=== PATIENT | male | born 1960 | race Caucasian/White ===

== ENCOUNTER 2020-08-28 01:39 | Day surgery (SDC) | payer OTHER, SELFPAY ==
[2020-08-14 12:43] VITALS: BMI 32.1
[2020-08-28 06:10] VITALS: BP 144/87; PULSE 67; RESP 18; TEMP 36.4; O2SAT 99; BMI 32.5
[2020-08-28] MEDS: LACTATED RINGERS 1,000 ML 150 ML IV CONT (06:33)
--- NOTE | 2020-08-28 07:10 | WPDANESEPPF ---
Anes - Initial Pre Proc Eval Procedure: Operation Date: 08/28/20 07:30 Proposed Procedures p Screening Colonoscopy - Carmelo Gautam MD Date/Time: 08/28/20 07:10 Surgeon: Carmelo Gautam MD Pre Op Diagnosis: Neoplasm Screening Patient Data Age: 60 Gender: M Height: 5 ft 7 in Weight: 94.1 kg Last Vital Signs Temp 97.5 F L 08/28/20 06:10 Pulse 67 08/28/20 06:10 Resp 18 08/28/20 06:10 BP 144/87 H 08/28/20 06:10 Pulse Ox 99 08/28/20 06:10 Allergies Allergy/AdvReac Type Severity Reaction Status Date / Time No Known Allergies Allergy Mild Verified 04/11/20 16:43 Home Medications Medication Instructions Recorded Confirmed Type atorvastatin 10 mg tablet 10 mg PO DAILY 10/17/19 08/14/20 History canagliflozin 100 mg tablet 100 mg PO DAILY 10/17/19 08/14/20 History metformin 500 mg tablet 500 mg PO DAILY 10/17/19 08/14/20 History quinapril 20 1 tablet PO DAILY 10/17/19 08/14/20 History mg-hydrochlorothiazide 12.5 mg tablet sildenafil 100 mg tablet 100 mg PO DAILY PRN #8 tablet 02/29/20 08/14/20 Rx sodium,potassium,mag sulfates 17.5 See Rx Instructions PO .COMPLEX 07/31/20 Rx gram-3.13 gram-1.6 gram oral soln #354 ml Patient hx anesthesia problems: none Family hx anesthesia problems: none PMFSH Past Medical History Medical History (Updated 08/28/20 @ 07:10 by Fam Monroy MD) BMI 30.0-30.9,adult Diabetes Hyperlipidemia Surgical History Surgical History H/O hernia repair Family History Family History Mother Diabetes mellitus Hypertension Family history of elevated blood lipids Sibling Hypertension Grandparent Acute myocardial infarction Cerebrovascular accident Family history of coronary artery disease Father Cerebrovascular accident Malignant neoplasm of prostate Other Family history of cardiovascular disease Social History Social History Smoking status: Never smoker Second hand tobacco smoke exposure: No Alcohol intake: current Alcohol use details: SOCIAL Substance use: unknown Substance use type: unknown Living arrangements: with family Spiritual care concerns: No Anes - Eval Final PreProcedure Day of Procedure 08/28/20 07:10 Patient weight: overweight and obese Heart: regular rate and rhythm Lungs: clear to auscultation Airway: Mallampati scale Last oral intake: >/= 8 hours ASA classification: III Emergent: no Anesthetic plan: proceed Anesthesia type and monitoring: general GIVS and standard monitoring Informed Consent: The patient's anesthetic plan and its attendant risks and benefits were discussed with the patient/family/POA. Questions were solicited and answers provided to the satisfaction of the patient/family/POA.
--- NOTE | 2020-08-28 07:12 | PM.HPGS ---
History of Present Illness History of Present Illness Consent: Risks, benefits, and alternatives have been discussed and questions answered. Patient agrees to proceed with procedure. Chief complaint: Neoplasm Screening Narrative: Benedicto Colmenares Jr. is a 60 year old male For for colon cancer screening Review of Systems Review of Systems: All systems reviewed & are unremarkable except as noted in HPI and below PMFSH Past Medical History Medical History BMI 30.0-30.9,adult Diabetes Hyperlipidemia Surgical History Surgical History H/O hernia repair Family History Family History Mother Diabetes mellitus Hypertension Family history of elevated blood lipids Sibling Hypertension Grandparent Acute myocardial infarction Cerebrovascular accident Family history of coronary artery disease Father Cerebrovascular accident Malignant neoplasm of prostate Other Family history of cardiovascular disease Social History Social History Smoking status: Never smoker Second hand tobacco smoke exposure: No Alcohol intake: current Alcohol use details: SOCIAL Substance use: unknown Substance use type: unknown Living arrangements: with family Spiritual care concerns: No Meds Home Medications and Allergies Home Medications Medication Instructions Recorded Confirmed Type atorvastatin 10 mg tablet 10 mg PO DAILY 10/17/19 08/14/20 History canagliflozin 100 mg tablet 100 mg PO DAILY 10/17/19 08/14/20 History metformin 500 mg tablet 500 mg PO DAILY 10/17/19 08/14/20 History quinapril 20 1 tablet PO DAILY 10/17/19 08/14/20 History mg-hydrochlorothiazide 12.5 mg tablet sildenafil 100 mg tablet 100 mg PO DAILY PRN #8 tablet 02/29/20 08/14/20 Rx sodium,potassium,mag sulfates 17.5 See Rx Instructions PO .COMPLEX 07/31/20 Rx gram-3.13 gram-1.6 gram oral soln #354 ml Allergies Allergy/AdvReac Type Severity Reaction Status Date / Time No Known Allergies Allergy Mild Verified 04/11/20 16:43 Vital Signs Vital Signs - 24 hr 08/28/20 06:10 Temperature 36.4 C L Pulse Rate 67 Respiratory Rate 18 Blood Pressure 144/87 H Pulse Oximetry 99 Exam Resp: Auscultation: clear to auscultation bilaterally Cardio: Rate: regular rate Rhythm: regular rhythm GI: GI Palp: Yes Soft to palpation and No Tenderness to palpation present (GI) Assessment and Plan Assessment and plan (1) Colon cancer screening: Code(s): Z12.11 - Encounter for screening for malignant neoplasm of colon Status: Acute Assessment and Plan: Colonoscopy with possible biopsy or polypectomy or cautery or injection of substances.
[2020-08-28 07:13] LABS: Glucose Point of Care 101 (65-105)
[2020-08-28] MEDS: SIMETHICONE ORAL SUSPENSION 20 MG/0.3 ML 30 ML BOTTLE 0.6 ML IRRIGATION (07:40)
[2020-08-28 07:47] VITALS: BP 126/76; PULSE 77; RESP 16; O2SAT 99
[2020-08-28 07:57] VITALS: BP 136/75; PULSE 68; RESP 16; O2SAT 98
[2020-08-28 08:07] VITALS: BP 129/77; PULSE 65; RESP 11; O2SAT 98
== END 2020-08-28 08:25 | disposition home or self-care (01) ==
PROVIDERS: PCP Physician Assistant; Visit Provider Internal Medicine Gastroenterology
PROC: 0DJD8ZZ Inspection of Lower Intestinal Tract, Via Natural or Artificial Opening Endoscopic (ICD-10-PCS; CPT 45378; principal; 2020-08-28 07:30)
DX: Z12.11 Encounter for screening for malignant neoplasm of colon (principal); K57.30 Diverticulosis of large intestine without perforation or abscess without bleeding; E11.9 Type 2 diabetes mellitus without complications; E78.5 Hyperlipidemia, unspecified; Z79.84 Long term (current) use of oral hypoglycemic drugs; E66.9 Obesity, unspecified; Z68.32 Body mass index [BMI] 32.0-32.9, adult
CPT/HCPCS: 45378; 82948; J2704; J7120

== ENCOUNTER 2020-09-11 07:29 | Outpatient (CLI) | payer OTHER, SELFPAY ==
--- NOTE | ~2020-09-11 | US_ITS ---
EXAMINATION: US aorta [facility] scr[facility] DATE: 09/11/2020 08:09 INDICATION: Abdominal aortic aneurysm screening with risk factors of hypertension, diabetes and hyper cholesterolemia. TECHNIQUE: Grayscale, color Doppler, and pulsed Doppler images of the aorta and common iliac arteries were obtained. COMPARISON: None. FINDINGS: The proximal aorta measures 3.3 cm. The mid aorta measures 2.9 cm. The distal aorta measures 2.4 cm. The right common iliac artery measures 1.7 cm. The left common iliac artery measures 1.5 cm. IMPRESSION: 1. Normal caliber abdominal aorta. Reviewed, dictated and finalized at location D.
== END 2020-09-11 07:30 | disposition home or self-care (01) ==
PROVIDERS: PCP Physician Assistant; Visit Provider Physician Assistant
DX: Z82.49 Family history of ischemic heart disease and other diseases of the circulatory system (principal)
CPT/HCPCS: 76706

== ENCOUNTER 2020-11-07 08:35 | Outpatient (CLI) | payer OTHER, SELFPAY ==
--- NOTE | 2020-11-07 08:40 | ECHO_ITS ---
Patient Info Name: Benedicto Colmenares Age: 60 years : 1960 Gender: Male Ht: 67 in Wt: 205 lbs BSA: 2.13 m2 HR: 72 bpm BP: 139 / 84 mmHg Heart Rhythm: Sinus Rhythm Technical Quality: Good Exam Date: 11/07/2020 9:08 AM Exam Location: [facility] Pulmonary Patient Status: Outpatient Admit Date: 11/07/2020 Staff Ordering Physician: Michele Riddle PA-C [employer] Specialist: Kanika Yoder RDCS Attending Provider: Michele Riddle PA-C Referring Physician: Janessa PEDRO; Exam Type: CA echo doppler color flow Study Info Indications - chesdt pain Complete two-dimensional, color flow and Doppler transthoracic echocardiogram is performed. Summary 1. Complete two-dimensional, color flow and Doppler transthoracic echocardiogram is performed. 2. Left ventricular chamber dimension is normal. 3. Left ventricular systolic function is normal, estimated at 65-70%. 4. There is moderately increased left ventricular wall thickness. 5. The left ventricular diastolic function is grade I diastolic dysfunction. 6. Left atrial chamber dimension is mildly enlarged. 7. There is mild mitral valve regurgitation. 8. The mitral valve has thickened leaflets. 9. There is mild tricuspid valve regurgitation. 10. Mild pulmonary hypertension, estimated pulmonary arterial systolic pressure is 39 mmHg. Left Ventricle Left ventricular chamber dimension is normal. Left ventricular systolic function is normal, estimated at 65-70%. There is moderately increased left ventricular wall thickness. The left ventricular diastolic function is grade I diastolic dysfunction. Right Ventricle Right ventricular chamber dimension is normal. Right ventricular systolic function is normal. Left Atria Left atrial chamber dimension is mildly enlarged. Right Atria Right atrial chamber dimension is normal. Atrial Septum Intact interatrial septum visualized by color flow imaging. Aortic Valve The aortic valve is trileaflet. There is no aortic valve sclerosis. There is no aortic valve stenosis. There is trace aortic valve regurgitation. Pulmonic Valve The pulmonic valve is normal. There is no pulmonic valve stenosis. There is trace pulmonic regurgitation. Mitral Valve The mitral valve has thickened leaflets. There is no mitral valve stenosis. There is mild mitral valve regurgitation. Tricuspid Valve The tricuspid valve leaflets are normal. There is no significant tricuspid valve stenosis. There is mild tricuspid valve regurgitation. Mild pulmonary hypertension, estimated pulmonary arterial systolic pressure is 39 mmHg. Pericardium/Pleural The pericardium appears normal. There is no pericardial effusion. Inferior Vena Cava Normal inferior vena cava with >50% collapse upon inspiration consistent with normal right atrial pressure, 10 mmHg. Aorta The aortic root size at the sinus of Valsalva is mildly dilated. Left Ventricular Outflow Tract Name Value Normal LVOT 2D LVOT Diameter 2.1 cm LVOT Doppler LVOT Peak Gradient 10 mmHg LVOT Mean Gradient 6 mmHg
== END 2020-11-07 08:36 | disposition home or self-care (01) ==
PROVIDERS: PCP Physician Assistant; Visit Provider Physician Assistant
DX: R07.9 Chest pain, unspecified (principal); I27.20 Pulmonary hypertension, unspecified
CPT/HCPCS: 93306

== ENCOUNTER 2020-12-20 14:31 | Outpatient (CLI) | payer OTHER, SELFPAY ==
--- NOTE | ~2020-12-20 | CT_ITS ---
EXAMINATION: CT chest abdomen pelvis w con DATE: 12/20/2020 14:59 INDICATION: Hypercalcemia. TECHNIQUE: Computed tomography (CT) of the chest, abdomen, and pelvis was performed with 100 mL Omnip aque 350 intravenous contrast. Automated exposure control and iterative reconstruction technique were employed. The dose-length product was 790.96 mGy-cm. COMPARISON: None FINDINGS: CHEST CT: There are innumerable nodules in both lungs in a perilymphatic distribution. The nodules measure up t o 4 mm. No pleural effusion. There is mediastinal and bilateral hilar lymphadenopathy. For example, a right paratracheal node measures 2.7 x 1.5 cm. The heart size is normal. No pericardial effusion. Th ere is moderate thoracic spondylosis. ABDOMEN/PELVIS CT: The liver and spleen are normal. There are gallstones in the gallbladder, which is normal in size. Th e pancreas and adrenal glands are normal. There is cortical thinning of the kidneys. There are change s of right inguinal hernia repair. The prostate is moderately enlarged. There is diverticulosis of th e colon without evidence of diverticulitis. The appendix is normal. There are no dilated loops of bow el. There is periportal and gastrohepatic lymphadenopathy. For example, a periportal node measures 5. 8 x 2.0 cm. There is no free intraperitoneal fluid. There is mild lumbar spondylosis. IMPRESSION: 1. Pulmonary nodules and chest and abdominal lymphadenopathy, most likely sarcoid. Reviewed, dictated and finalized at location A. IMPRESSION: 1. Pulmonary nodules and chest and abdominal lymphadenopathy, most likely sarco id.
[2020-12-20 14:53] LABS: Estimated Glomerular Filt Rate 33
== END 2020-12-20 14:32 | disposition home or self-care (01) ==
PROVIDERS: PCP Physician Assistant; Visit Provider Physician Assistant
DX: E83.52 Hypercalcemia (principal); R91.8 Other nonspecific abnormal finding of lung field; K80.80 Other cholelithiasis without obstruction; K57.30 Diverticulosis of large intestine without perforation or abscess without bleeding; R59.0 Localized enlarged lymph nodes
CPT/HCPCS: 71260; 74177; Q9967

== ENCOUNTER 2020-12-26 13:56 | Outpatient (CLI) | payer OTHER, SELFPAY ==
--- NOTE | ~2020-12-26 | US_ITS ---
EXAMINATION: US renal BI DATE: 12/26/2020 15:03 INDICATION: Acute renal failure TECHNIQUE: Multiple grayscale and Doppler ultrasound images of the kidneys were obtained. COMPARISON: None. FINDINGS: The right kidney measures 11.1 x 6.6 x 4.9 cm. The left kidney measures 11.6 x 7.2 x 5.1 cm . The kidneys demonstrate normal parenchymal echogenicity. There is no hydronephrosis. The bladder de monstrates wall thickness measuring up to 5 mm but is incompletely distended. IMPRESSION: 1. Normal kidneys without hydronephrosis. 2. Mild bladder wall thickening which could be due to incomplete distention. Reviewed, dictated and finalized at location B.
== END 2020-12-26 13:57 | disposition home or self-care (01) ==
PROVIDERS: PCP Physician Assistant; Visit Provider Physician Assistant
DX: N17.9 Acute kidney failure, unspecified (principal); R93.41 Abnormal radiologic findings on diagnostic imaging of renal pelvis, ureter, or bladder
CPT/HCPCS: 76775

== ENCOUNTER 2021-07-18 07:57 | Outpatient (RCR) | payer OTHER, SELFPAY ==
[2021-07-18 08:04] VITALS: BMI 33.1
[2021-07-18 08:07] VITALS: BMI 33.1
== END 2021-10-14 12:26 | disposition home or self-care (01) ==
LOC: ANHDMC 07:57
PROVIDERS: PCP Physician Assistant; Visit Provider Nurse Practitioner Family
DX: E11.9 Type 2 diabetes mellitus without complications (principal); Z71.3 Dietary counseling and surveillance
CPT/HCPCS: 97802; 99199

== ENCOUNTER → 2021-08-28 06:52 | Outpatient (CLI) | payer OTHER, SELFPAY ==
--- NOTE | ~2021-08-28 | XR_ITS ---
XR knee LT 3V DATE: 08/28/2021 07:39 INDICATION: Left knee pain TECHNIQUE: [place], AP and lateral views COMPARISON: 04/09/2015 left knee FINDINGS: There is tricompartment osteoarthritis, most prominent at the medial compartment with promi nent loss of joint space there is periarticular spurring at all 3 compartments. No fracture or dislocation, periosteal reaction or bone destruction, radiopaque intra-articular loose body or chondrocalcinosis. No joint effusion is evident. 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
== END ==
PROVIDERS: PCP Physician Assistant; Visit Provider Physician Assistant
DX: M25.562 Pain in left knee (principal); M17.12 Unilateral primary osteoarthritis, left knee
CPT/HCPCS: 73562

== ENCOUNTER 2022-01-06 16:03 | Outpatient (CLI) | payer OTHER, SELFPAY ==
--- NOTE | ~2022-01-06 | US_ITS ---
EXAMINATION: US scrotum doppler DATE: 01/06/2022 17:29 INDICATION: Right scrotal mass TECHNIQUE: Testicular sonogram utilizing grayscale and Doppler COMPARISON: None. FINDINGS: The left testis measures 3.3 x 1.5 x 2.2 cm. The right testis measures 4.0 x 1.8 x 2.3 cm. There is a well-defined 1.1 x 1.0 x 1.0 cm hypoechoic lesion situated deep to the tunica between the head of th e epididymis and the cephalad margin of the right testis. There appears be a small amount of more hyp erechoic fat from an acute angle between the peripheral margins of the testis and the hypoechoic lesi on suggesting an extratesticular origin. No definitive internal vascularity on color Doppler which wo uld be consistent with a complex cystic lesion most likely an epididymal cyst. Otherwise symmetric no rmal grayscale appearance to both testes. There is normal vascular flow to both testes. The right epi didymis is otherwise normal with normal vascular flow. 3 mm anechoic epididymal cyst at the head of t he otherwise normal left epididymis. Normal vascular flow in the left epididymis. There is no varicoc jillian or hydrocele. IMPRESSION: 1. 11 mm hypoechoic lesion situated between the right epididymal head and the cephalad pole of the r ight testis without discernible internal vascular flow on color Doppler which appears more likely ext ratesticular and would favor a complex epididymal cyst over solid neoplasm. Reviewed, dictated and finalized at location B. IMPRESSION: 1. 11 mm hypoechoic lesion situated between the right epididymal head and the cephalad pole of the right testis without discernible internal vascular flow on color Doppler which appears more likely extratesticular and would favor a comp ilan epididymal cyst over solid neoplasm.
== END 2022-01-06 16:04 | disposition home or self-care (01) ==
PROVIDERS: PCP Physician Assistant; Visit Provider Physician Assistant
DX: N50.89 Other specified disorders of the male genital organs (principal)
CPT/HCPCS: 76870; 93976

== ENCOUNTER 2022-05-14 09:15 | Outpatient (RCR) | payer OTHER, SELFPAY ==
[2022-02-19 13:49] VITALS: BMI 33.1
== END 2022-05-19 09:49 | disposition home or self-care (01) ==
LOC: ANHDMC 09:15
PROVIDERS: PCP Physician Assistant; Visit Provider Internal Medicine Endocrinology, Diabetes & Metabolism
DX: E11.9 Type 2 diabetes mellitus without complications (principal); Z71.3 Dietary counseling and surveillance; Z71.89 Other specified counseling
CPT/HCPCS: 97803; 99199; G0108

== ENCOUNTER 2022-09-08 07:30 | Outpatient (CLI) | payer OTHER, SELFPAY ==
--- NOTE | ~2022-09-08 | US_ITS ---
EXAMINATION: US soft tissue head and neck DATE: 09/08/2022 08:09 INDICATION: Other specified soft tissue disorder. Right clavicle bulge. TECHNIQUE: Multiple grayscale and Doppler ultrasound images of the neck were obtained. COMPARISON: Chest CT 12/20/2020, right shoulder radiographs 09/08/2022 FINDINGS: There is no abnormal mass or lymphadenopathy in the patient's area of concern. IMPRESSION: 1. No abnormal mass or lymphadenopathy in the patient's area of concern. Reviewed, dictated and finalized at location A.
--- NOTE | ~2022-09-08 | XR_ITS ---
Right Shoulder Technique: AP and scapular Y views were obtained. Clinical History: Pain Findings: No fracture or dislocation is seen. Osseous alignment is anatomic. Uqic-os-mxzuekjk AC join t degenerative change present. Glenohumeral joint is intact. Soft tissues are unremarkable. Impression: Glpt-ex-gwwicwkz AC joint degenerative change. Reviewed, dictated and finalized at location . Impression: Fvbm-bk-siclqirq AC joint degenerative change.
== END 2022-09-08 07:31 | disposition home or self-care (01) ==
PROVIDERS: PCP Physician Assistant; Visit Provider Physician Assistant
DX: M25.511 Pain in right shoulder (principal); M79.89 Other specified soft tissue disorders; R93.6 Abnormal findings on diagnostic imaging of limbs
CPT/HCPCS: 73030; 76536

== ENCOUNTER 2024-07-07 09:30 | Outpatient (RCR) | payer OTHER, SELFPAY ==
[2024-05-09 08:26] VITALS: BMI 38.3
[2024-07-07 09:35] VITALS: BMI 31.4
[2024-07-07 09:40] VITALS: BMI 31.4
== END 2024-07-25 09:48 | disposition home or self-care (01) ==
LOC: ANHDMC 09:30
PROVIDERS: PCP Physician Assistant; Visit Provider Nurse Practitioner Family
DX: E11.29 Type 2 diabetes mellitus with other diabetic kidney complication (principal); R80.9 Proteinuria, unspecified; Z71.3 Dietary counseling and surveillance; Z71.89 Other specified counseling
CPT/HCPCS: 97802; 97803; G0108

== ENCOUNTER 2024-12-01 09:04 | Outpatient (CLI) | payer OTHER, SELFPAY ==
--- NOTE | ~2024-12-01 | US_ITS ---
Renal-Bladder ultrasound Clinical History: Diabetes Technique: Real-time sonographic imaging of the kidneys and urinary bladder was performed. Findings: The right kidney measures 11.8 cm in length and the left kidney measures 10.8 cm. There is no hydronephrosis or renal calculus identified. Renal cortical echogenicity is within normal limits. No renal mass lesion is identified. The urinary bladder is moderately distended at the time of this exam. No intraluminal echoes are iden tified. No abnormal wall thickening is seen. Prostate gland is enlarged. Impression: Unremarkable ultrasound of the kidneys and urinary bladder. Enlarged prostate gland. Reviewed, dictated and finalized at location . Impression: Unremarkable ultrasound of the kidneys and urinary bladder. Enlarged prostate gland.
--- OUTSIDE RECORDS SUMMARY | 2024-12-01 09:41 | XMS_ITS | Clinical Summary ---
Author Organization [facility] Address [address] [place] [id number] Care Team Providers Care [facility] Name Role Phone Michele Riddle Primary Care Provider Sathish Barker MD, Ziyad Unavailable + [phone] Millicent Finch MD Unavailable [phone] Dougie Honeycutt MD Unavailable [phone] Allergies No known active allergies Medications atorvastatin (LIPITOR) 10 mg tablet Take 10 mg by mouth daily Active amLODIPine (NORVASC) 10 mg tablet Take 1 tablet (10 mg total) by mouth daily 30 tablet 11 1 Active tamsulosin (FLOMAX) 0.4 mg extended release capsule Take 1 capsule (0.4 mg total) by mouth daily with dinner 30 capsule 1 Active Additional Information Patient not taking.Reported on 01/29/2021 LORazepam (ATIVAN) 0.5 mg tabletIndicatio ns:anxiety,Inso mnia Take 1 tablet (0.5 mg total) by mouth every 6 (six) hours as needed for anxiety 12 tablet 1 Active traZODone (DESYREL) 50 mg tablet Take 1 tablet (50 mg total) by mouth nightly as needed for sleep 30 tablet 1 Active sulfamethoxazol e-trimethoprim (BACTRIM DS) 800-160 mg per tablet Take 1 tablet by mouth 3 (three) times a week 30 tablet 1 1 Active predniSONE (DELTASONE) 10 mg tablet Take 0.5 tablets (5 mg) by mouth daily 45 tablet 2 Active Active Problems Problem Noted Date Diagnosed Date Sarcoidosis of lung 01/15/2021 Steroid-induced hyperglycemia 01/15/2021 Essential hypertension 01/15/2021 Controlled type 2 diabetes m juanpablo without complication, without long-term current use of insulin 01/15/2021 Acute kidney failure 01/10/2021 Hypercalcemia 12/25/2020 Immunizations Immunization Administration Dates Next Due Pfizer SARS-CoV-2 Monovalent Vaccination (12+ Yrs) PURPLE 11/20/2020,10/30/2020 Surgical History Surgery Date Site/Laterality Comments COLONOSCOPY CT CHEST TUBE INSERTION LEFT 01/11/2021 N/A Medical History Medical History Date Comments Diabetes mellitus (HCC) Social History Tobacco Use Types Packs/Day Years Used Date Smoking Tobacco: Never AUDIT-C Answer Date Recorded Q1: How often do you have a drink containing alc ohol? 2-4 times a month 01/08/2021 Q2: How many drinks containi ng alcohol do you have on a typical day when you are drinking? 3 or 4 01/08/2021 Frequency of Binge Drinking Not on file 12/27 Personal Safety Answer Date Recorded Getting School Help Needed Not on file 08/29 Sex and Gender Information Value Date Recorded Sex Assigned at Not on file Legal Sex Male 9:44 AM CDT Gender Identity Not on file Sexual Orientation Not on file Obstetrics History Last Filed Vital Signs Vital Sign Reading Time Taken Comments Blood Pressure 142/78 02/20/2021 3:29 PM CDT Pulse 92 02/20/2021 3:29 PM CDT Temperature 36.7 C (98.1 F) 02/20/2021 3:29 PM CDT Respiratory Rate 18 02/20/2021 3:29 PM CDT Oxygen Saturation 98% 02/20/2021 3:29 PM CDT Inhaled Oxygen Concentration - - Weight 86.5 kg (190 lb 12.8 oz) 021 11:27 AM CDT Height 172.7 cm (5' 8) 01/29/2021 11:2 7 AM CDT Body Mass Index 29.01 01/29/2021 11:27 AM CDT Plan of Treatment Health Maintenance Due Date Last Done Comments Albumin Creatinine Ratio, Urine 1960 Colon Cancer Screening-Colonoscopy 1960 Depression Screening 1960 Hepatitis C Screening 1960 Prostate Cancer Screening-PSA 1960 Dilated Eye Exam 1960 Foot Exam 1960 Lipid Panel 1960 DTaP/Tdap/Td Vaccine (1 - Tdap) 1973 Hepatitis B Screening 1980 Regular Well Visit/Exam 18-64 1980 Pneumococcal vaccine <65 (1 of 2 - PCV) 1981 Zoster Vaccine (1 of 2) 2012 Hemoglobin A1C 07/17/2021 01/14/2021 eGFR 01/25/2022 01/25/2021, 12/28, 01/15/2021, Additional history exists Covid-19 Vaccine (3 - 2023-2 5 season) 2024 11/20/2020, 10/30/2020 Influenza Vaccine (Season Ended) 2025 Procedures Procedure Name Priority Date/Time Associated Diagnosis Comments EGFR Routine 01/25/2021 7:24 AM CDT Sarcoidosis of lung Acute renal failure with other specified pathological lesion in kidney HEMOGLOBIN A1C Routine 01/14/2021 2:07 PM CDT from Last 3 Months or Most Recently Relevant to Health Maintenance Results * eGFR (01/25/2021 7:24 AM CDT) eGFR 43 mL/min/1.7 3 m2 ALEXIS OBANDO Comment: Interpretive Data Reference Interval Normal >/= 90 mL/min/1.73m2 Mildly decreased* 60 - 89 mL/min/1.73m2 Mildly to moderately decreased 45 - 59 mL/min/1.73m2 Moderately to severely decreased 30 - 44 mL/min/1.73m2 Severely decreased 15 - 29 mL/min/1.73m2 Kidney Failure < 15 mL/min/1.73m2 *Relative to young adult level Estimated glomerular filtration rate is determined by the CKD-EPI equation recommended by the National Kidney Foundation (KDIGO 2012 Clinical Practice Guideline for the Evaluation and Management of Chronic Kidney Disease. Kidney Intnl Suppl Jun 2012;3:1). The CKD-EPI equation should not be used for patients with unstable renal function and has not been validated in children and those over 70. Current interpretive data was last reviewed 2020 Testing performed by: [address] [address] Blood specimen (specimen) 01/25/2021 7:24 AM CDT 01/25/2021 7:27 AM CDT us Millicent Finch MD LAB BLOOD ORDERABLES F inal Result Performing Organization Address [facility] Co de Phone Number [facility] [address] [facility] [place] [address] * (ABNORMAL) Hemoglobin A1c (01/14/2021 2:07 PM CDT) Hgb A1C 6.6(H) 4.0 - 5.6 % ALEXIS Comment:Testing performed by : [address] [address] Estimated Average Glucose 143 mg/dL ALEXIS Comment: The ADA recommends reporting an estimated Average Glucose (eAG) with all Hemoglobin A1c results using the equation derived from a study of 507 normal and diabetic adults. Minority populations were underrepresented and children were not included. (Diabetes Care 31:0542-0909, 2008). The eAG is not equivalent to a fasting glucose. Testing performed by: [address] [address] Blood specimen (specimen) 01/14/2021 2:07 PM CDT 01/14/2021 2:51 PM CDT us Jose Henderson MD LAB BLOOD ORDERABLES Final R esult Performing Organization Address City/[facility]/ZIP Co de Phone Number [facility] [address] [facility] [address] [place], [place] [id number] from Last 3 Months or Most Recently Relevant to Health Maintenance Insurance [facility] H[facility] Advance Directives For more information, please contact: [phone] * Full Code (Latest Code Status on File) Date Activated Date Inactivated Comments 01/09/2021 3:16 PM 01/15/2021 6:56 PM Care Teams [facility] Relationship Specialty Start Date End Date Michele Riddle PA [address] [address] PCP - General Physician Hand Lens Polisher 11/07/20 Ziyad Bower Jr., MD [address] [address] Medical Oncologist/Medium Cycle Salesperson Medical Oncology 01/03/21 Millicent Finch MD [address] [address] Consulting Physician Pulmonary Disease 01/15/21 Dougie Honeycutt MD [address] [address] Consulting Physician Nephrology 01/15/21
--- OUTSIDE RECORDS SUMMARY | 2024-12-01 09:41 | XMS_ITS | Referral Summary ---
Author Organization [facility] Address [facility] [place] [address] Care Team Providers Care Field Property Loss Specialist Name Role Phone Michele Riddle Primary Care Provider Sathish Barker MD, Ziyad Unavailable + [phone] Millicent Finch MD Unavailable +[phone] Dougie Honeycutt MD Unavailable [phone] Allergies No known active allergies Medications [...] Essential hypertension 01/15/2021 Controlled type 2 diabetes ching geronimo without complication, without long-term current use of insulin 01/15/2021 Acute kidney failure 01/10/2021 Hypercalcemia 12/25/2020 Immunizations Immunization Administration Dates Next Due Pfizer SARS-CoV-2 Monovalent Vaccination (12+ Yrs) PURPLE 11/20/2020,10/30/2020 Social History Tobacco Use Types Packs/Day Years [...] on file Sexual Orientation Not on file Last Filed Vital Signs Vital Sign Reading [...] 01/29/2021 11:27 AM CDT Plan of Treatment Not on file Procedures Procedure Name Priority Date/Time Associated Diagnosis [...] was last reviewed 2020 Testing performed by: [facility], [address] [place] [address]., [address] Blood specimen (specimen) 01/25/2021 7:24 AM CDT 01/25/2021 7:27 AM CDT Millicent Finch MD LAB BLOOD ORDERABLES F inal Result ALEXIS [address] [facility] [place] [address] * (ABNORMAL) Hemoglobin A1c (01/14/2021 2:07 PM CDT) Hgb A1C 6.6(H) 4.0 - 5.6 % ALEXIS OBANDO Comment:Testing performed by : [address] [address] Estimated Average Glucose 143 mg/dL ALEXIS OBANDO Comment: The ADA recommends reporting an estimated Average Glucose (eAG) with all Hemoglobin A1c results using the equation derived from a study of 507 normal and diabetic adults. Minority populations were underrepresented and children were not included. (Diabetes Care 31:5510-0087, 2008). The eAG is not equivalent to a fasting glucose. Testing performed by: [facility], [address] [place] [address]., [address] Blood specimen (specimen) 01/14/2021 2:07 PM CDT 01/14/2021 2:51 PM CDT us Jose Henderson MD LAB BLOOD ORDERABLES Final R esult ALEXIS [address] [facility] [place] [address] from Last 3 Months or Most Recently Relevant to Health Maintenance Insurance [facility] [employer] OPEN ACCESS [facility] Advance Directives For more information, please contact: [phone] * Full Code (Latest Code Status on File) Date Activated Date Inactivated Comments 01/09/2021 3:16 PM 01/15/2021 6:56 PM Care Teams Field Property Loss Specialist Relationship Specialty Start Date End Date Michele Riddle PA [address] [address] PCP - General Physician Resin Filterer 11/07/20 Ziyad Bower Jr., MD [address] [facility] [address] [place] [address] Medical Oncologist/Cardiovascular Surgical Tech Medical Oncology 01/03/21 Millicent Finch MD [address] [address] Consulting Physician Pulmonary Disease 01/15/21 Dougie Honeycutt MD [address] [facility] [address] [place] [address] Consulting Physician Nephrology 01/15/21
== END 2024-12-01 09:05 | disposition home or self-care (01) ==
PROVIDERS: PCP Nurse Practitioner; Visit Provider Internal Medicine Nephrology
DX: N40.0 Benign prostatic hyperplasia without lower urinary tract symptoms (principal); E11.29 Type 2 diabetes mellitus with other diabetic kidney complication; R80.9 Proteinuria, unspecified
CPT/HCPCS: 76775

== ENCOUNTER 2025-05-11 12:41 | Emergency (ER) | payer OTHER, SELFPAY ==
[2025-05-11] VITALS (7 sets, daily range): BP systolic 153–206; BP diastolic 64–101; PULSE 54–83; RESP 15–17; TEMP 36.4; O2SAT 97–100
--- NOTE | ~2025-05-11 | CT_ITS ---
EXAMINATION: CT brain wo reza, 05/11/2025 13:58 SEDIMENTATIONIST HISTORY: vertigo COMPARISON: No comparisons available. Technique: Axial images obtained of the brain without contrast. One or more of the following dose reduction techniques were used: automated exposure control, adjustment of the mA and/or kV according to patient size, use of iterative reconstruction technique. Findings: No acute infarct or parenchymal hemorrhage. No abnormal mass or mass effect. No midline shift. No extra-axial fluid collections. No hydrocephalus. Mastoid air cells unremarkable. Sinuses and orbits unremarkable. No acute fracture. No significant facial or scalp soft tissue swelling evident. No radiopaque foreign body is seen. Impression: 1.No acute intracranial abnormality. Reviewed, dictated and finalized at location P. MENTATIONIST Impression: 1.No acute intracranial abnormality.
--- OUTSIDE RECORDS SUMMARY | 2025-05-11 13:13 | XMS_ITS | Clinical Summary ---
Author Organization [facility] Address [address] [place] [address] Care Team Providers Care Latin Dance Instructor Name Role Phone Michele Riddle Primary Care Provider Sathish Barker MD, Ziyad Unavailable + [phone] Millicent Finch MD Unavailable [phone] Dougie Honeycutt MD Unavailable [phone] Allergies No known active allergies Medications [...] History Medical History Date Comments Diabetes mellitus Social History Tobacco Use Types Packs/Day Years [...] 12/28, 01/15/2021, Additional history exists Covid-19 Vaccine (2024-2 6 season) 2025 11/20/2020, 10/30/2020 Influenza Vaccine (#1) 2025 Procedures Procedure Name Priority Date/Time Associated Diagnosis Comments EGFR Routine 01/25/2021 7:24 AM CDT Sarcoidosis of lung Acute renal failure with other specified pathological lesion in kidney HEMOGLOBIN A1C Routine 01/14/2021 2:07 PM CDT from Last 3 Months or Most Recently Relevant to Health Maintenance Results * eGFR (01/25/2021 7:24 AM CDT) eGFR 43 mL/min/1.7 3 m2 ALEXIS Comment: Interpretive Data Reference Interval Normal >/= [...] was last reviewed 2020 Testing performed by: [address] [address] Blood specimen (specimen) 01/25/2021 7:24 AM CDT 01/25/2021 7:27 AM CDT us Millicent Finch MD LAB BLOOD ORDERABLES F inal Result Performing Organization Address [facility] de Phone Number [facility] [address] [facility] [address] [place] [place] [address] * (ABNORMAL) Hemoglobin A1c (01/14/2021 2:07 PM CDT) Hgb A1C 6.6(H) 4.0 - 5.6 % ALEXIS Comment:Testing performed by : [address] [address] Estimated Average Glucose 143 mg/dL [facility] Comment: The ADA recommends reporting an estimated Average Glucose (eAG) with all Hemoglobin A1c results using the equation derived from a study of 507 normal and diabetic adults. Minority populations were underrepresented and children were not included. (Diabetes Care 31:3816-1120, 2008). The eAG is not equivalent to a fasting glucose. Testing performed by: [address] [address] Blood specimen (specimen) 01/14/2021 2:07 PM CDT 01/14/2021 2:51 PM CDT us Jose Henderson MD LAB BLOOD ORDERABLES Final R esult Performing Organization Address [facility] Co de Phone Number [facility] [address] [facility] [address] [place] [address] from Last 3 Months or Most Recently Relevant to Health Maintenance Insurance [facility] O [facility] HMO/PPO Address: [address] [address] [place] [address] [facility] O [facility] OPEN [facility] HMO/PPO Address: [address] [address] [place] [address] Advance Directives For more information, please contact: [phone] * Full Code (Latest Code Status on File) Date Activated Date Inactivated Comments 01/09/2021 3:16 PM 01/15/2021 6:56 PM Care Teams Latin Dance Instructor Relationship Specialty Start Date End Date Michele Riddle PA [address] [address] PCP - General Physician Tumblers Supervisor 11/07/20 Ziyad Bower Jr., MD [address] [address] Medical Oncologist/Welcome Wagon Hostess Medical Oncology 01/03/21 Millicent Finch MD [address] [address] Consulting Physician Pulmonary Disease 01/15/21 Dougie Honeycutt MD [address] [address] Consulting Physician Nephrology 01/15/21
--- OUTSIDE RECORDS SUMMARY | 2025-05-11 13:13 | XMS_ITS | Clinical Summary ---
Author Organization [facility] Address [address] [place] [address] Care Team Providers Care Drawing Kiln Operator Name Role Phone Unavailable Primary Care Provider Unavailabl e Allergies No known active allergies Social History Tobacco Use Types Packs/Day Years Used Date Smoking Tobacco: Never Assessed Sex and Gender Information Value Date Recorded Sex Assigned at Not on file Legal Sex Male 2:20 PM CDT Gender Identity Not on file Sexual Orientation Not on file Plan of Treatment Health Maintenance Due Date Last Done Comments Colorectal Cancer Screening Colonoscopy (10 Years) 1962 Annual Physical 1965 Hepatitis C 1980 DTaP, Tdap and Td Vaccines ( 1 - Tdap) 1981 Pneumococcal Vaccine: 50+ Ye ars (1 of 1 - PCV) 2012 Zoster Vaccines (1 of 2) 2012 COVID-19 Vaccine (1 - 2024-2 6 season) 2025 Influenza Adult (#1) 2025 RSV Immunization or 60+ Years (1 - 1-dose 75+ series) 2037 Hepatitis A Vaccines Aged Out No long er eligible based on patient's age to complete this topic Meningococcal B Vaccine Aged Out No l onger eligible based on patient's age to complete this topic Meningococcal Vaccine Aged Out No jesica ehrminia eligible based on patient's age to complete this topic RSV Immunizations Under 20 Months Aged Out No longer eligible based on patient's age to complete this topic Insurance AET[employer] OPEN ACCESS [facility]
--- NOTE | 2025-05-11 13:17 | PC.NURSE ---
Spoke to Kita, pt POA at this time regarding pt update and POC. All questions answered.
--- NOTE | 2025-05-11 13:21 | ECG_ITS ---
Test Date: 2025-05-11 13:33:53 Measurements Intervals [place] Rate: 57 P: 38 NM: 163 QRS: 7 QRSD: 98 T: 70 QT: 416 QTc: 406 Interpretive Statements SINUS BRADYCARDIA POSSIBLE LEFT ATRIAL ENLARGEMENT [-0.1mV P-WAVE IN V1/V2] NONSPECIFIC T-WAVE ABNORMALITY No previous ECG available for comparison Electronically Signed On 05-11-2025 13:58:33 ROLLER MECHANIC by Nicola Chowdhury M.D.
[2025-05-11 13:39] LABS: Hematocrit 49.6 % (42.0-52.0); Hemoglobin 16.1 g/dL (14.0-18.0); Immature Granulocyte Percent A 0.6 % (0-0.5); Lymphocytes Absolute Auto 0.88 K/mm3 (0.9-3.2); Mean Corpuscular HGB Conc 32.5 g/dl (32-36); Mean Corpuscular Hemoglobin 27.9 pg (26-34); Mean Corpuscular Volume 86.0 fl (80-100); Nucleated Red Blood Cells Absolute Auto 0.000 K/mm3 (0.0-0.012); Nucleated Red Blood Cells Perc 0.0 % (0.0-0.2); Platelet Count Result 152 k/mm3 (150-375); Red Blood Count 5.77 M/mm3 (4.6-6.20); White Blood Count 8.3 K/mm3 (4.5-10.0)
--- NOTE | 2025-05-11 13:45 | ED_ITS ---
HPI - General Adult General Chief complaint: Nausea/Vomiting/Diarrhea Stated complaint: ear infection Time Seen by Provider: 05/11/25 13:22 History of Present Illness HPI narrative: 65-year-old male presenting to the emergency department for evaluation for dizziness sensation ?it feels like, a uvinr-ih-elvaf ?. Patient states the symptoms started on Thursday after he increased his lisinopril dose. Patient states he went back to his original lisinopril does yesterday. suspected that he had not been taking his lisinopril because patient has history of noncompliance. Patient does have history of vertigo approximately 6 years ago and states this does feel similar. Pain does report nausea and vomiting secondary to the vertigo like symptoms. Patient does report associated dehydration. Patient denies any feeling like he was going to pass out. Patient does have what he describes as double vision. Patient states he did do an Shanna test at home and reports the symptoms are worse when looking to the right. Patient denies any prior history of TIA, CVA or [place]. Patient called his primary care physician and patient was referred to the emergency department for further workup. Related Data Allergies Allergy/AdvReac Type Severity Reaction Status Date / Time dapsone (From Diaoxia) Allergy Unknown Unknown Verified 05/11/25 13:31 niacinamide (From Diaoxia) Allergy Unknown Unknown Verified 05/11/25 13:31 Review of Systems 2 Review of Systems: All systems reviewed & are unremarkable except as noted in HPI and below PMFSH Past Medical History Medical History BMI 29.0-29.9,adult Erectile dysfunction Type 2 diabetes mellitus Skin neoplasm Sarcoidosis Multiple benign nevi of face without atypia Hypercalcemia Psoriasis Onychomycosis BMI 30.0-30.9,adult Hypertension Hyperlipidemia Surgical History Surgical History H/O hernia repair Family History Family History Mother Diabetes mellitus Hypertension Family history of elevated blood lipids Sibling Hypertension Grandparent Acute myocardial infarction Cerebrovascular accident Family history of coronary artery disease Father Cerebrovascular accident Malignant neoplasm of prostate Other Aneurysm Anxiety Depression Family history of cardiovascular disease Social History Social History (Reviewed 04/10/25 @ 13:05 by SHELLEY Ahumada Smoking status: Never smoker Second hand tobacco smoke exposure: No Alcohol intake: current Alcohol use details: socially Substance use: never Substance use type: does not use Do You Feel Safe in your Home?: Yes Lack of Transportation: No Lack of Food: Never True Current Housing: I Have Housing Concerned About Future Housing: No Difficulty Paying Gas/Electric Bills: No Difficulty Paying for Meds: No Currently Unemployed: Decline to Answer Education: Associate Degree Difficulty w/ Childcare or Family Care: No Living arrangements: with family Occupation/Education: occupation Additional occupation/education comments: [employer] Gender identity (if verbalized by the patient): Male Spiritual care concerns: No Exam 2 Narrative: APPEARANCE: Uncomfortable appearing secondary to vertigo HEAD: normocephalic, atraumatic. EYES: PERRLA/EOMI, conjunctivae clear. NOSE: Normal no drainage EARS:TMS clear with good light reflex. THROAT: Pharynx clear, no exudate. NECK: Supple. No adenopathy, no masses. RESPIRATORY: Airway patent, respirations nonlabored. Clear to auscultation bilaterally, no rales, rhonchi, wheezing. CARDIOVASCULAR: Regular rate and rhythm without murmurs rubs or gallops. ABDOMINAL: Soft, nontender, nondistended, normal bowel sounds MUSCULOSKELETAL: Moves all extremities. Strength/ROM intact, No edema, No calf tenderness. NEURO: Worsened symptoms when looking to the right. Patient does report some right lateral double vision. No single eye double vision SKIN: Warm, dry. Normal Color Course Vital Signs Vital signs: Vital Signs Temperature 97.5 F L 05/11/25 12:58 Pulse Rate 60 05/11/25 12:58 Respiratory Rate 16 05/11/25 12:58 Blood Pressure 169/64 H 05/11/25 12:58 Pulse Oximetry 100 05/11/25 12:58 Oxygen Delivery Room Air 05/11/25 12:58 Temperature 97.5 F L 05/11/25 12:58 Pulse Rate 83 05/11/25 16:27 Respiratory Rate 17 05/11/25 16:27 Blood Pressure 197/96 H 05/11/25 16:27 Pulse Oximetry 97 05/11/25 16:27 Oxygen Delivery Room Air 05/11/25 12:58 Medical Decision Making MDM Narrative Medical decision making narrative: 65-year-old male presents emergency department for evaluation for vertigo symptoms. Patient was treated with p.o. meclizine, IV Zofran and IV Valium along with a L of lactated Ringer's. Patient is currently afebrile with no leukocytosis hemoglobin of 16.1. CT was ordered to evaluate for CVA or intracranial abnormality. On re-evaluation patient states he does feel improved. Differential Diagnosis Differential Diagnosis: Subdural hematoma subarachnoid hemorrhage, benign positional vertigo, central vertigo, CVA Vital Signs Vital Signs: Vital Signs Temperature 97.5 F L 05/11/25 12:58 Pulse Rate 60 05/11/25 12:58 Respiratory Rate 16 05/11/25 12:58 Blood Pressure 169/64 H 05/11/25 12:58 Pulse Oximetry 100 05/11/25 12:58 Oxygen Delivery Room Air 05/11/25 12:58 Temperature 97.5 F L 05/11/25 12:58 Pulse Rate 83 05/11/25 16:27 Respiratory Rate 17 05/11/25 16:27 Blood Pressure 197/96 H 05/11/25 16:27 Pulse Oximetry 97 05/11/25 16:27 Oxygen Delivery Room Air 05/11/25 12:58 Lab Data Lab results reviewed: Yes I reviewed the patient's lab results. 05/11/25 13:31 05/11/25 13:31 Labs: Lab Results 05/11/25 05/11/25 Range/Units 13:31 14:56 WBC 8.3 (4.5-10.0) K/mm3 RBC 5.77 (4.6-6.20) M/mm3 Hgb 16.1 (14.0-18.0) g/dL Hct 49.6 (42.0-52.0) % MCV 86.0 (80-100) fl MCH 27.9 (26-34) pg MCHC 32.5 (32-36) g/dl RDW 13.0 (11.5-14.5) % Plt Count 152 (150-375) k/mm3 MPV 10.4 (7.4-10.4) fl Immature Gran % (Auto) 0.6 H (0-0.5) % Neut % (Auto) 84.9 H (45.5-73.1) % Lymph % (Auto) 10.6 L (18.3-44.2) % Morrow % (Auto) 3.4 (2.6-8.5) % Eos % (Auto) 0.1 (0-4.4) % Baso % (Auto) 0.4 (0.2-1.2) % Lymph # (Auto) 0.88 L (0.9-3.2) K/mm3 Morrow # (Auto) 0.3 (0.1-0.6) K/mm3 Eos # (Auto) 0.0 (0-0.3) K/mm3 Baso # (Auto) 0.0 (0.0-0.1) K/mm3 Abs Immat Gran (auto) 0.05 H (0.00-0.031) K/mm3 Absolute Neuts (auto) 7.1 H (1.3-6.7) K/mm3 Absolute Nucleated RBC 0.000 (0.0-0.012) K/mm3 Nucleated RBC % 0.0 (0.0-0.2) % Sodium 139 (137-145) mmol/L Potassium 4.1 (3.4-5.0) mmol/L Chloride 104 (98-107) mmol/L Carbon Dioxide 24 (22-30) mmol/L Anion Gap 11 (4-12) mmol/L BUN 27 H (9-20) mg/dL Creatinine 1.05 (0.7-1.3) mg/dL Estim Creat Clear Calc 70 ml/min Estimated GFR > 60 (59 - ) Glucose 265 H (65-110) mg/dL Calcium 9.4 (8.4-10.2) mg/dL Total Bilirubin 1.2 (0.2-1.3) mg/dL AST 27 (17-59) U/L ALT 23 (6-50) U/L Alkaline Phosphatase 111 (38-126) U/L Total Protein 8.5 H (6.3-8.2) g/dL Albumin 4.8 (3.5-5.1) g/dL Lipase 50 (23-300) U/L Urine Color Yellow (Yellow) Urine Appearance Clear (Clear) Urine pH 5.0 (5.0-9.0) Ur Specific [place] 1.035 (1.001-1.035) Urine Protein 2+ H (Negative) mg/dL Urine Glucose (UA) 3+ H (Negative) mg/dL Urine Ketones 1+ H (Negative) mg/dL Ur Blood (Man) Negative (Negative) Urine Nitrate Negative (Negative) Urine Bilirubin Negative (Negative) Urine Urobilinogen 1.0 (<2.0) mg/dL Leukocyte Esterase Rfl Negative (Negative) JOHN/UL Urine RBC 0-2 (0-2) /hpf Urine WBC 0-5 (0-3) /hpf Ur Squamous Epith Cells None seen (Few) /hpf Urine Bacteria None seen /hpf Urine Casts 3-5 Imaging Data Radiologist's impression: Impressions Head CT 05/11/25 14:03 Impression: 1.No acute intracranial abnormality. Discharge Plan Discharge Clinical Impression: Vertigo Patient Disposition: Acute Care [facility] Condition: Serious Patient Language: Faroese Prescriptions: No Action Mounjaro 2.5 mg/0.5 mL pen injector 2.5 mg subcut WEEKLY Qty: 2 0RF Rx Instructions: for 4 weeks (DME) FreeStyle Braulio 3 Plus Sensor Device See Rx Instructions .ROUTE .MEDSUPPLY Qty: 6 2RF Rx Instructions: Use to monitor glucose Mounjaro 5 mg/0.5 mL pen injector 5 mg subcut WEEKLY Qty: 6 1RF Jardiance 25 mg tablet 25 mg PO QAM Qty: 90 1RF insulin glargine [Lantus Solostar U-100 Insulin] 100 unit/mL (3 mL) insulin pen 20 unit subcut QAM Qty: 30 1RF metformin 500 mg tablet extended release 24 hr 1,000 mg PO BID 90 Days Qty: 360 2RF Kerendia 10 mg tablet 10 mg PO DAILY Qty: 90 1RF lisinopril 10 mg tablet 10 mg PO DAILY Qty: 90 3RF indapamide 1.25 mg tablet 1.25 mg PO DAILY Qty: 90 3RF (DME) OneTouch Verio test strips Strip See Rx Instructions .Route Qty: 500 3RF Rx Instructions: Check Glcuose 2-3 times a day (DME) lancets [OneTouch Delica Plus Lancet] 33 gauge misc See Rx Instructions .Route Qty: 500 3RF Rx Instructions: As directed (DME) pen needle, diabetic [BD Ultra-Fine Mirian Pen Needle] 32 gauge x 5/32 needle See Rx Instructions .Route Qty: 100 2RF Rx Instructions: As directed amlodipine 10 mg tablet 10 mg PO DAILY Qty: 90 3RF atorvastatin 20 mg tablet See Rx Instructions .ROUTE .COMPLEX Qty: 90 3RF Dose Instruction: TAKE 1 TABLET BY MOUTH DAILY Rx Instructions: TAKE 1 TABLET BY MOUTH DAILY Follow-up/Referrals: Jose Aguiar APRN [Primary Care Provider, Internal Medicine]
[2025-05-11 13:49] LABS: Alanine Aminotransferase 23 U/L (6-50); Albumin Level 4.8 g/dL (3.5-5.1); Alkaline Phosphatase 111 U/L (38-126); Anion Gap 11 mmol/L (4-12); Aspartate Amino Transferase 27 U/L (17-59); Bilirubin,Total 1.2 mg/dL (0.2-1.3); Blood Urea Nitrogen 27 mg/dL (9-20); Calcium 9.4 mg/dL (8.4-10.2); Carbon Dioxide 24 mmol/L (22-30); Chloride 104 mmol/L (98-107); Estimated CRCL calculation 70 ml/min; Estimated Glomerular Filt Rate > 60; Glucose 265 mg/dL (65-110); Lipase 50 U/L (23-300); Sodium 139 mmol/L (137-145); Total Protein 8.5 g/dL (6.3-8.2)
[2025-05-11] MEDS: diazePAM INJ (*CRX) 10 MG/2 ML SYRINGE 2 MG IV PUSH (13:50)
[2025-05-11] MEDS: MECLIZINE HCL 25 MG TABLET PO (13:50)
[2025-05-11] MEDS: ONDANSETRON INJ 4 MG/2 ML VIAL IV PUSH (13:51)
[2025-05-11] MEDS: LACTATED RINGERS 1,000 ML 999 ML IV CONT (13:52)
--- NOTE | 2025-05-11 13:54 | PC.NURSE ---
Pt to CT scan via stretcher at this time, fluids infusing.
[2025-05-11 13:56] LABS: Potassium 4.1 mmol/L (3.4-5.0)
--- OUTSIDE RECORDS SUMMARY | 2025-05-11 14:32 | XMS_ITS | Clinical Summary ---
Author Organization [facility] Address [address] [place] [address] Care Team Providers Care Cellar Packer Name Role Phone Michele Riddle Primary Care Provider Sathish Barker MD, Ziyad Unavailable + [phone] Millicent Finch MD Unavailable [phone] Dougie Honeycutt MD Unavailable [phone] Allergies No known active allergies Medications [...] was last reviewed 2020 Testing performed by: [address] [address] Blood specimen (specimen) 01/25/2021 7:24 AM CDT 01/25/2021 7:27 AM CDT us Millicent Finch MD LAB BLOOD ORDERABLES F inal Result Performing Organization Address [facility] de Phone Number [facility] [address] [facility] [place] [address] * (ABNORMAL) Hemoglobin A1c (01/14/2021 2:07 PM CDT) Hgb A1C 6.6(H) 4.0 - 5.6 % ALEXIS Comment:Testing performed by : [address] [address] Estimated Average Glucose 143 mg/dL [facility] Comment: The ADA recommends reporting an estimated Average Glucose (eAG) with all Hemoglobin A1c results using the equation derived from a study of 507 normal and diabetic adults. Minority populations were underrepresented and children were not included. (Diabetes Care 31:2507-4736, 2008). The eAG is not equivalent to a fasting glucose. Testing performed by: [address] [address] Blood specimen (specimen) 01/14/2021 2:07 PM CDT 01/14/2021 2:51 PM CDT us Jose Henderson MD LAB BLOOD ORDERABLES Final R esult Performing Organization Address [facility] Co de Phone Number [facility] [address] [facility] [place] [address] from Last 3 Months or Most Recently Relevant to Health Maintenance Insurance [facility]ALTHC[facility] O [facility] HMO/PPO Address: [address] [address] [place] [address] [facility]ALTHC[facility] O [facility] OPEN ACCESS [facility] H[facility]/PPO Address: [address] [place] [address] [facility] HMO/PPO Address: [address] [address] [place] [address] Advance Directives For more information, please contact: [phone] * Full Code (Latest Code Status on File) Date Activated Date Inactivated Comments 01/09/2021 3:16 PM 01/15/2021 6:56 PM Care Teams Cellar Packer Relationship Specialty Start Date End Date Michele Riddle PA [address] [address] PCP - General Physician Aircraft Skin Burnisher 11/07/20 Ziyad Bower Jr., MD [address] [address] Medical Oncologist/International Marketing Coordinator Medical Oncology 01/03/21 Millicent Finch MD [address] [address] Consulting Physician Pulmonary Disease 01/15/21 Dougie Honeycutt MD [address] [address] Consulting Physician Nephrology 01/15/21
--- OUTSIDE RECORDS SUMMARY | 2025-05-11 14:32 | XMS_ITS | Clinical Summary ---
Author Organization [facility] Address [address] [place] [address] Care Team Providers Care Industrial Gas Production Operator Name Role Phone Unavailable Primary Care [...] topic Meningococcal Vaccine Aged Out No jesica herminia eligible based on patient's age to complete this topic RSV Immunizations Under 20 Months Aged Out No longer eligible based on patient's age to complete this topic Insurance [employer] OPEN ACCESS [facility]
[2025-05-11 15:13] LABS: Add Urine Microscopic? YES; Appearance Urine Clear (Clear); Glucose Urine UA 3+ mg/dL (Negative); Leukocyte Esterase Ur Negative LEU/UL (Negative); Nitrate Urine Negative (Negative); Specific Grav Ur 1.035 (1.001-1.035)
--- NOTE | 2025-05-11 19:21 | PC.NURSE ---
Received report from [facility] for cont. of care. Pt AOx4, c/o dizziness and lightheaded. Pt updated on plan of care, on cont. cardiac and pulse oximeter monitoring. pt appears in NAD.
== END 2025-05-11 20:39 | disposition short-term general hospital (02) ==
PROVIDERS: Emergency Medicine; Emergency Provider Emergency Medicine; PCP Nurse Practitioner
DX: R42 Dizziness and giddiness (principal); I10 Essential (primary) hypertension; E11.9 Type 2 diabetes mellitus without complications; E78.5 Hyperlipidemia, unspecified; L40.9 Psoriasis, unspecified; Z85.828 Personal history of other malignant neoplasm of skin; Z79.85 Long-term (current) use of injectable non-insulin antidiabetic drugs; Z79.84 Long term (current) use of oral hypoglycemic drugs; Z79.899 Other long term (current) drug therapy; Z79.4 Long term (current) use of insulin
CPT/HCPCS: 36415; 70450; 80053; 81001; 83690; 85025; 93005; 96361; 96374; 96375; 99285; A9270; J0360; J2405; J3360; J7120